=== PATIENT | male | born 1995 | race African-American/Black ===

== ENCOUNTER 2016-07-07 23:02 | Emergency (ER) | payer BC ==
[~2016-07-07] VITALS: Ht 188 cm; Wt 70.0 kg
[~2016-07-07 23:02] MED LIST: MOTRIN
[2016-07-08 00:30] VITALS: BP 133/61
[2016-07-08] MEDS ORDERED: ACETAMINOPHEN 500MG TABLET PO ONE (00:30)
== END 2016-07-08 01:17 | disposition home or self-care (01) ==
LOC: ER 23:40
DX: M79.675 Pain in left toe(s) (principal); Z79.899 Other long term (current) drug therapy
CPT/HCPCS: 73630; 99284

== ENCOUNTER 2016-10-24 04:37 | Emergency (ER) | payer BC ==
[~2016-10-24] VITALS: Ht 188 cm; Wt 74.0 kg
[2016-10-24] MEDS ORDERED: LIDOCAINE HCL 1% 20ML VIAL (Pyxis) INJ MC ONE (06:45)
[2016-10-24] MEDS ORDERED: TETANUS, DIPHTHERIA, PERTUSSIS VAC/PF 0.5ML (>7YR OLD) IM ONE (06:45)
[2016-10-24] MEDS ORDERED: IBUPROFEN 600MG TABLET PO ONE (06:45)
[2016-10-24] MEDS ORDERED: BACITRACIN ZINC OINT UDPKT TOP ONE (06:45)
[2016-10-24 09:40] VITALS: BP 128/73
== END 2016-10-24 09:43 | disposition home or self-care (01) ==
LOC: ER 04:37
DX: L02.31 Cutaneous abscess of buttock (principal)
CPT/HCPCS: 10060; 90471; 90715; 99283; J3490; Z7610